=== PATIENT | female | born 1930 | race Caucasian/White ===

== ENCOUNTER 2018-06-29 08:48 | Inpatient (IN) | payer OTHER ==
[~2018-06-29] VITALS: Ht 162.6 cm; Wt 59.4 kg
[2018-06-29 08:48] VITALS: BP_SYST 110
[2018-06-29] MEDS ORDERED: ONDANSETRON HCL 4 MG/2 ML VIAL IVP ONE (09:15)
[2018-06-29] MEDS ORDERED: fentaNYL CITRATE/PF 100 MCG/2 ML AMP IVP ONE ×2 (09:15→10:30)
[2018-06-29] MEDS ORDERED: NACL 0.9% 1,000 ML IV ONE (09:15)
[2018-06-29 09:21] LABS: BASOPHILS % (AUTO) 0.5 % (0.0-2.0); EOSINOPHILS # (AUTO) 0.1 K/uL (0.0-0.4); EOSINOPHILS % (AUTO) 1.1 % (0.0-4.0); HEMATOCRIT 37.9 % (36-48); HEMOGLOBIN 11.9 g/dL (12.0-16.0); LYMPHOCYTES # (AUTO) 1.9 K/uL (1.0-5.5); LYMPHOCYTES % (AUTO) 36.3 % (20.5-51.5); MEAN CORPUSCULAR HEMOGLOBIN 28 pg (27-31); MEAN CORPUSCULAR HGB CONC 31 % (32-36); MEAN CORPUSCULAR VOLUME 88 fL (79.0-98.0); MONOCYTES # (AUTO) 0.3 K/uL (0.0-1.0); NEUTROPHILS % (AUTO) 56.1 % (40.0-70.0); PLATELET COUNT (AUTO) 311 K/uL (130-430); RED BLOOD CELL COUNT(AUTO) 4.32 MIL/uL (4.2-6.2); RED CELL DISTRIBUTION WIDTH 16.3 % (9.0-15.0); WHITE BLOOD COUNT (AUTO) 5.3 K/uL (4.8-10.8)
[2018-06-29 09:26] LABS: ANION GAP 10 (5-15); CALCIUM 9.6 mg/dL (8.4-11.0); CHLORIDE 104 mmol/L (98-107); GLUCOSE 194 mg/dL (70-99); SODIUM SERUM 139 mmol/L (136-145); UREA NITROGEN, BLOOD 10 mg/dL (8-21)
[2018-06-29 09:32] LABS: ALANINE AMINOTRANSFERASE 16 U/L (12-78); ALBUMIN 2.9 g/dL (3.4-4.8); ASPARTATE AMINOTRANSFERASE 16 U/L (10-37); TOTAL BILIRUBIN 0.4 mg/dL (0.0-1.0)
[2018-06-29 09:34] LABS: PROTHROMBIN TIME 10.5 SECS (9.5-12.5)
[2018-06-29] MEDS ORDERED: LORazepam 2 MG/ML VIAL (FOR ER USE) IVP ONE (11:45)
[2018-06-29 11:59] VITALS: BP_SYST 197
[2018-06-29 12:00] VITALS: BP_SYST 197
[2018-06-29] MEDS ORDERED: ONDANSETRON HCL 4 MG/2 ML VIAL IVP PRN (12:00)
[2018-06-29] MEDS ORDERED: ACETAMINOPHEN 325 MG TABLET PO PRN (12:00)
[2018-06-29] MEDS: HYDROmorphone 1 MG INJ. 1 MG/ML AMPUL IVP PRN ×2 (12:11→15:31)
[2018-06-29 14:52] LABS: BILIRUBIN,URINE NEGATIVE (NEGATIVE); BLOOD, URINE NEGATIVE (NEGATIVE); CLARITY/URINE CLEAR (CLEAR); COLOR,URINE YELLOW (YELLOW); GLUCOSE,URINE NEGATIVE (NEGATIVE); KETONES,URINE NEGATIVE (NEGATIVE); LEUKOCYTE ESTERASE ,URINE NEGATIVE (NEGATIVE); NITRITE, URINE NEGATIVE (NEGATIVE); PROTEIN URINE NEGATIVE (NEGATIVE); UROBILINOGEN,URINE 0.2 (0.2-1.0)
[2018-06-29] MEDS ORDERED: DEXTROSE 50% JECT 50 ML DISP.SYRIN IVP PRN ×2 (15:15)
[2018-06-29] MEDS ORDERED: INSULIN REGULAR, HUMAN 100 UNITS/ML, 10 ML VIAL (novoLIN R) SUBCUT PRN ×2 (15:15)
[2018-06-29 16:00] VITALS: BP_SYST 157
[2018-06-29 17:38] VITALS: BP_SYST 144
[2018-06-29] MEDS ORDERED: HYDROmorphone 2 MG/ML VIAL ONE (17:43)
[2018-06-29 17:45] VITALS: BP_SYST 144
[2018-06-29] MEDS ORDERED: HYDROmorphone 2 MG/ML VIAL IVP PRN (17:45)
== END 2018-06-29 19:25 | disposition short-term general hospital (02) | DRG 534 ==
LOC: SED 08:48 → SMU 11:07
PROVIDERS: ADMIT Internal Medicine Hospice and Palliative Medicine; ATTEND Internal Medicine Hospice and Palliative Medicine
DX: S72.402A Unspecified fracture of lower end of left femur, initial encounter for closed fracture (principal); J98.11 Atelectasis; I25.10 Atherosclerotic heart disease of native coronary artery without angina pectoris; E11.9 Type 2 diabetes mellitus without complications; I10 Essential (primary) hypertension; M81.0 Age-related osteoporosis without current pathological fracture; W18.39XA Other fall on same level, initial encounter; Y93.89 Activity, other specified; Z88.0 Allergy status to penicillin; I25.2 Old myocardial infarction; Z90.49 Acquired absence of other specified parts of digestive tract; Z88.1 Allergy status to other antibiotic agents; Z88.2 Allergy status to sulfonamides; Y92.89 Other specified places as the place of occurrence of the external cause; Y99.8 Other external cause status; S72.302A Unspecified fracture of shaft of left femur, initial encounter for closed fracture
CPT/HCPCS: 36415; 71045; 72192-TC; 73700-TC; 80053; 81003; 82962; 85025; 85610-TC; 85730-TC; 87081; 93005; 96374; 96375; 96376; 99285; J1170; J2060; J2405; J3010; J7030

== ENCOUNTER 2020-05-17 07:29 | Emergency (ER) | payer OTHER ==
[~2020-05-17] VITALS: Ht 167.6 cm; Wt 68.0 kg
[2020-05-17 07:35] VITALS: BP_SYST 143
--- NOTE | 2020-05-17 07:35 | NUR ---
Patient to ER bed 6 to gown for evaluation. Side rails up. Report given to Morris GOODWIN.
--- NOTE | 2020-05-17 07:40 | NUR ---
Pt came to ER for R head skin tear after mechanical fall this morning when turning tv on. Pt denies pain, AO4, resting in gurney, follows commands, VSS, no distress.
--- NOTE | 2020-05-17 07:43 | NUR ---
ER at bedside examining patient.
--- NOTE | 2020-05-17 07:44 | NUR ---
Current accu check 271.
[2020-05-17 09:03] VITALS: BP_SYST 143
--- NOTE | 2020-05-17 09:06 | NUR ---
Patient given written and verbal discharge instructions and verbalizes understanding. ER MD discussed with patient the results and treatment provided. Patient in stable condition. ID arm band removed. Rx of Motrin given. Patient educated on pain management and to follow up with PMD. Pain Scale 0/10. Opportunity for questions provided and answered. Medication side effect fact sheet provided.
== END 2020-05-17 09:06 | disposition home or self-care (01) ==
LOC: SED 07:29
DX: S00.81XA Abrasion of other part of head, initial encounter (principal); I10 Essential (primary) hypertension; E11.9 Type 2 diabetes mellitus without complications; Z90.49 Acquired absence of other specified parts of digestive tract; Z88.0 Allergy status to penicillin; Z88.6 Allergy status to analgesic agent; W18.39XA Other fall on same level, initial encounter; Y93.89 Activity, other specified; Y92.89 Other specified places as the place of occurrence of the external cause; Y99.8 Other external cause status
CPT/HCPCS: 70450-TC; 82962; 99284

== ENCOUNTER 2020-12-09 10:52 | Emergency (ER) | payer OTHER ==
[~2020-12-09] VITALS: Ht 162.6 cm; Wt 64.4 kg
[2020-12-09 11:01] VITALS: BP_SYST 180
--- NOTE | 2020-12-09 11:04 | NUR ---
Patient to ER bed 08 to gown for evaluation. Side rails up.
--- NOTE | 2020-12-09 11:10 | NUR ---
ER DR. CARDONA AT THE BEDSIDE EXAMINING PT
--- NOTE | 2020-12-09 11:12 | NUR ---
PT BIBA FROM HOME AFTER REPORTING THAT HER "LEGS GAVE OUT" AND SHE FELL ON LEFT KNEE AND THEN BACK OF HEAD. PT HAS HEMATOMA TO BACK OF HEAD, NO ACTIVE BLEEDING. PT IS AAOX3, V/S STABLE
[2020-12-09] MEDS ORDERED: ACETAMINOPHEN 500 MG TABLET PO ONE (11:30)
--- NOTE | 2020-12-09 11:38 | NUR ---
Patient transported to radiology via GURNEY, accompanied by STAFF.
--- NOTE | 2020-12-09 12:13 | NUR ---
PT REQUESTING BED HYATT, ABLE TO VOID, SPECIMEN COLLECTED AND SENT TO LAB
--- NOTE | 2020-12-09 13:30 | NUR ---
Patient given written and verbal discharge instructions and verbalizes understanding. ER MD discussed with patient the results and treatment provided. Patient in stable condition. ID arm band removed. Patient educated on pain management and to follow up with PMD. Pain Scale 0/10. Opportunity for questions provided and answered. Medication side effect fact sheet provided.
[2020-12-09 13:32] VITALS: BP_SYST 180
== END 2020-12-09 13:30 ==
LOC: SED 10:52
DX: S00.03XA Contusion of scalp, initial encounter (principal); M25.562 Pain in left knee; I10 Essential (primary) hypertension; E11.9 Type 2 diabetes mellitus without complications; Z88.0 Allergy status to penicillin; Z88.5 Allergy status to narcotic agent; W18.39XA Other fall on same level, initial encounter; Y93.89 Activity, other specified; Y92.89 Other specified places as the place of occurrence of the external cause; Y99.8 Other external cause status
CPT/HCPCS: 70450-TC; 72125-TC; 73560-TC; 76376; 93005; 99285

== ENCOUNTER 2021-10-05 05:15 | Inpatient (IN) | payer OTHER, SELFPAY ==
[~2021-10-05] VITALS: Ht 157.5 cm; Wt 57.6 kg
[2021-10-05 05:20] VITALS: BP_SYST 111
[2021-10-05 06:18] LABS: BASOPHILS % (AUTO) 0.4 % (0.0-2.0); HEMATOCRIT 46.6 % (36-48); HEMOGLOBIN 15.5 g/dL (12.0-16.0); LYMPHOCYTES # (AUTO) 0.3 K/uL (1.0-5.5); MEAN CORPUSCULAR HEMOGLOBIN 31 pg (27-31); MEAN CORPUSCULAR HGB CONC 33 % (32-36); MEAN CORPUSCULAR VOLUME 95 fL (79.0-98.0); MONOCYTES # (AUTO) 0.5 K/uL (0.0-1.0); MONOCYTES % (AUTO) 4.9 % (1.7-9.3); NEUTROPHILS # (AUTO) 9.4 K/uL (1.8-7.7); NEUTROPHILS % (AUTO) 91.7 % (40.0-70.0); PLATELET COUNT (AUTO) 179 K/uL (130-430); RED BLOOD CELL COUNT(AUTO) 4.93 MIL/uL (4.2-6.2); RED CELL DISTRIBUTION WIDTH 14.2 % (9.0-15.0); WHITE BLOOD COUNT (AUTO) 10.3 K/uL (4.8-10.8)
[2021-10-05 06:26] LABS: ANION GAP 17 (5-15); CHLORIDE 103 mmol/L (98-107); CREATININE 0.85 mg/dL (0.55-1.30); GLUCOSE 325 mg/dL (70-99); POTASSIUM 3.3 mmol/L (3.5-5.1); SODIUM SERUM 139 mmol/L (136-145); UREA NITROGEN, BLOOD 16 mg/dL (8-21)
[2021-10-05 06:34] LABS: ALANINE AMINOTRANSFERASE 23 U/L (12-78); ALBUMIN 3.6 g/dL (3.4-4.8); ASPARTATE AMINOTRANSFERASE 27 U/L (10-37); TOTAL BILIRUBIN 0.6 mg/dL (0.0-1.0)
[2021-10-05] MEDS ORDERED: NACL 0.9% 1,000 ML IV ONE (07:00)
[2021-10-05] MEDS ORDERED: LISI10TA PO (07:58)
[2021-10-05] MEDS ORDERED: SITA1TAB6 PO (07:58)
[2021-10-05 08:59] LABS: BILIRUBIN,URINE NEGATIVE (NEGATIVE); BLOOD, URINE 3+ (NEGATIVE); CLARITY/URINE HAZY (CLEAR); COLOR,URINE YELLOW (YELLOW); GLUCOSE,URINE 3+ (NEGATIVE); KETONES,URINE 1+ (NEGATIVE); LEUKOCYTE ESTERASE ,URINE NEGATIVE (NEGATIVE); NITRITE, URINE POSITIVE (NEGATIVE); PH,URINE 5.5 (5.0-8.0); PROTEIN URINE 2+ (NEGATIVE); UROBILINOGEN,URINE 0.2 (0.2-1.0)
[2021-10-05 09:06] LABS: BACTERIA,URINE MODERATE /HPF (None Seen); MUCUS,URINE 1+ /LPF (None Seen); RBC,URINE 20-50 /HPF (0-3)
[2021-10-05] MEDS ORDERED: LEVOFLOXACIN IN DEXTROSE 5 % 100 ML IV ONE ×2 (09:45→18:00)
[2021-10-05] MEDS: D5NS 1,000 ML IV SCH ×2 (11:00→13:24)
[2021-10-05 11:22] VITALS: BP_SYST 167
[2021-10-05 11:25] VITALS: BP_SYST 167
[2021-10-05] MEDS ORDERED: DEXTROSE 50% JECT 50 ML DISP.SYRIN IVP PRN (12:15)
[2021-10-05] MEDS: INSULIN REGULAR, HUMAN 100 UNITS/ML, 10 ML VIAL (humuLIN R) SUBCUT PRN ×2 (13:21→17:54)
[2021-10-05 16:00] VITALS: BP_SYST 155
[2021-10-05 23:16] VITALS: BP_SYST 125
[2021-10-06 02:48] VITALS: BP_SYST 128
[2021-10-06 04:55] VITALS: BP_SYST 140
[2021-10-06] MEDS: INSULIN REGULAR, HUMAN 100 UNITS/ML, 10 ML VIAL (humuLIN R) SUBCUT PRN ×3 (05:34→22:47)
[2021-10-06 06:18] LABS: BASOPHILS % (AUTO) 0.1 % (0.0-2.0); EOSINOPHILS # (AUTO) 0.1 K/uL (0.0-0.4); EOSINOPHILS % (AUTO) 1.3 % (0.0-4.0); HEMATOCRIT 45.3 % (36-48); HEMOGLOBIN 15.1 g/dL (12.0-16.0); LYMPHOCYTES # (AUTO) 0.6 K/uL (1.0-5.5); LYMPHOCYTES % (AUTO) 7.5 % (20.5-51.5); MEAN CORPUSCULAR HEMOGLOBIN 31 pg (27-31); MEAN CORPUSCULAR HGB CONC 33 % (32-36); MEAN CORPUSCULAR VOLUME 94 fL (79.0-98.0); MONOCYTES # (AUTO) 0.5 K/uL (0.0-1.0); MONOCYTES % (AUTO) 6.6 % (1.7-9.3); NEUTROPHILS % (AUTO) 84.5 % (40.0-70.0); PLATELET COUNT (AUTO) 168 K/uL (130-430); RED BLOOD CELL COUNT(AUTO) 4.83 MIL/uL (4.2-6.2); RED CELL DISTRIBUTION WIDTH 14.6 % (9.0-15.0); WHITE BLOOD COUNT (AUTO) 8.3 K/uL (4.8-10.8)
[2021-10-06 06:41] LABS: ANION GAP 11 (5-15); CHLORIDE 106 mmol/L (98-107); CREATININE 0.63 mg/dL (0.55-1.30); GLUCOSE 187 mg/dL (70-99); SODIUM SERUM 142 mmol/L (136-145); UREA NITROGEN, BLOOD 15 mg/dL (8-21)
[2021-10-06 06:57] LABS: ALANINE AMINOTRANSFERASE 24 U/L (12-78); ALBUMIN 2.9 g/dL (3.4-4.8); ASPARTATE AMINOTRANSFERASE 37 U/L (10-37); THYROID STIMULATING HORMONE 1.01 uIu/mL (0.36-3.74); TOTAL BILIRUBIN 0.7 mg/dL (0.0-1.0)
[2021-10-06 07:14] LABS: POTASSIUM 2.9 mmol/L (3.5-5.1)
[2021-10-06] MEDS: LEVOFLOXACIN 250 MG/D5W 50 ML IV SCH (08:54)
[2021-10-06 09:08] LABS: CHOLESTEROL 126 mg/dL (<200); HDL CHOLESTEROL 91 mg/dL (>55); LDL CHOLESTEROL 20 mg/dL (<100); TRIGLYCERIDES 89 mg/dL (30-150)
[2021-10-06 11:27] VITALS: BP_SYST 156
[2021-10-06] MEDS: D5NS 1,000 ML IV SCH ×3 (14:21→22:00)
[2021-10-06] MEDS ORDERED: POTASSIUM CHLORIDE 20 MEQ TAB.PRT.SR PO ONE (16:30)
[2021-10-06 16:48] VITALS: BP_SYST 149
[2021-10-06 20:00] VITALS: BP_SYST 146
[2021-10-07] VITALS: BP_SYST 159
[2021-10-07] MEDS: INSULIN REGULAR, HUMAN 100 UNITS/ML, 10 ML VIAL (humuLIN R) SUBCUT PRN ×2 (06:14→12:30)
[2021-10-07 08:00] VITALS: BP_SYST 155
[2021-10-07] MEDS: LEVOFLOXACIN 250 MG/D5W 50 ML IV SCH (11:18)
[2021-10-07] MEDS ORDERED: ACETAMINOPHEN 325 MG TABLET PO PRN (12:00)
[2021-10-07 12:50] VITALS: BP_SYST 146
[2021-10-07 16:23] VITALS: BP_SYST 140
[2021-10-07] MEDS: D5NS 1,000 ML IV SCH ×2 (18:57→20:09)
[2021-10-07 20:27] VITALS: BP_SYST 114
[2021-10-07] MEDS: NACL 0.9% 1,000 ML IV SCH (20:36)
[2021-10-08] VITALS (7 sets, daily range): BP systolic 114–160
[2021-10-08] MEDS: INSULIN REGULAR, HUMAN 100 UNITS/ML, 10 ML VIAL (humuLIN R) SUBCUT PRN ×3 (01:06→23:11)
[2021-10-08] MEDS: LEVOFLOXACIN 250 MG/D5W 50 ML IV SCH (09:11)
[2021-10-08] MEDS: ERTAPENEM SODIUM 1 GM in NS 50 ML IV SCH (12:21)
[2021-10-08] MEDS: NACL 0.9% 1,000 ML IV SCH ×2 (12:22→23:12)
[2021-10-08] MEDS ORDERED: DIPHENHYDRAMINE INJ 50 MG/ML VIAL IVP ONE (20:30)
[2021-10-09 00:16] VITALS: BP_SYST 142
[2021-10-09] MEDS: INSULIN REGULAR, HUMAN 100 UNITS/ML, 10 ML VIAL (humuLIN R) SUBCUT PRN ×3 (05:45→17:54)
[2021-10-09 07:40] LABS: ALANINE AMINOTRANSFERASE 20 U/L (12-78); ALBUMIN 2.3 g/dL (3.4-4.8); ANION GAP 8 (5-15); ASPARTATE AMINOTRANSFERASE 20 U/L (10-37); CALCIUM 8.5 mg/dL (8.4-11.0); CHLORIDE 105 mmol/L (98-107); CREATININE 0.48 mg/dL (0.55-1.30); GLUCOSE 178 mg/dL (70-99); POTASSIUM 3.2 mmol/L (3.5-5.1); SODIUM SERUM 141 mmol/L (136-145); TOTAL BILIRUBIN 0.6 mg/dL (0.0-1.0); UREA NITROGEN, BLOOD 12 mg/dL (8-21)
[2021-10-09 08:00] VITALS: BP_SYST 155
[2021-10-09 08:16] LABS: BASOPHILS % (AUTO) 0.5 % (0.0-2.0); EOSINOPHILS # (AUTO) 0.1 K/uL (0.0-0.4); EOSINOPHILS % (AUTO) 2.8 % (0.0-4.0); HEMATOCRIT 40.6 % (36-48); HEMOGLOBIN 13.6 g/dL (12.0-16.0); LYMPHOCYTES # (AUTO) 0.8 K/uL (1.0-5.5); LYMPHOCYTES % (AUTO) 15.7 % (20.5-51.5); MEAN CORPUSCULAR HEMOGLOBIN 31 pg (27-31); MEAN CORPUSCULAR HGB CONC 34 % (32-36); MEAN CORPUSCULAR VOLUME 93 fL (79.0-98.0); MONOCYTES # (AUTO) 0.4 K/uL (0.0-1.0); MONOCYTES % (AUTO) 8.2 % (1.7-9.3); NEUTROPHILS # (AUTO) 3.6 K/uL (1.8-7.7); NEUTROPHILS % (AUTO) 72.8 % (40.0-70.0); PLATELET COUNT (AUTO) 169 K/uL (130-430); RED BLOOD CELL COUNT(AUTO) 4.36 MIL/uL (4.2-6.2); RED CELL DISTRIBUTION WIDTH 14.3 % (9.0-15.0); WHITE BLOOD COUNT (AUTO) 4.9 K/uL (4.8-10.8)
[2021-10-09] MEDS: LEVOFLOXACIN 250 MG/D5W 50 ML IV SCH (10:26)
[2021-10-09 13:14] VITALS: BP_SYST 147
[2021-10-09] MEDS: ERTAPENEM SODIUM 1 GM in NS 50 ML IV SCH (13:19)
[2021-10-09] MEDS: NACL 0.9% 1,000 ML IV SCH (16:48)
[2021-10-09] MEDS ORDERED: LISINOPRIL 10 MG TABLET (PRINIVIL) PO ONE (17:00)
[2021-10-09 18:11] VITALS: BP_SYST 171
[2021-10-09 21:25] VITALS: BP_SYST 148
[2021-10-10 00:13] VITALS: BP_SYST 147
[2021-10-10] MEDS: INSULIN REGULAR, HUMAN 100 UNITS/ML, 10 ML VIAL (humuLIN R) SUBCUT PRN ×5 (00:53→21:48)
[2021-10-10] MEDS: NACL 0.9% 1,000 ML IV SCH ×2 (05:50→21:38)
[2021-10-10 08:00] VITALS: BP_SYST 152
[2021-10-10] MEDS ORDERED: LISINOPRIL 10 MG TABLET (PRINIVIL) PO SCH (09:00)
[2021-10-10] MEDS: LEVOFLOXACIN 250 MG/D5W 50 ML IV SCH (09:55)
[2021-10-10] MEDS: ERTAPENEM SODIUM 1 GM in NS 50 ML IV SCH (11:22)
[2021-10-10 12:00] VITALS: BP_SYST 187
[2021-10-10 12:32] VITALS: BP_SYST 179
[2021-10-10] MEDS ORDERED: LISINOPRIL 10 MG TABLET (PRINIVIL) PO ONE (13:15)
[2021-10-10 16:00] VITALS: BP_SYST 146
[2021-10-10 20:00] VITALS: BP_SYST 180
[2021-10-10] MEDS: LISINOPRIL 10 MG TABLET (PRINIVIL) PO SCH (21:37)
[2021-10-10] MEDS ORDERED: DIPHENHYDRAMINE INJ 50 MG/ML VIAL IVP ONE (23:15)
[2021-10-10] MEDS ORDERED: hydrALAZINE HCL 25 MG TABLET PO ONE (23:15)
[2021-10-11 01:43] VITALS: BP_SYST 155
[2021-10-11] MEDS ORDERED: hydrALAZINE HCL 20 MG/ML VIAL IVP ONE (01:45)
[2021-10-11] MEDS ORDERED: KETOROLAC TROMETHAMINE 30 MG VIAL IVP ONE (01:45)
[2021-10-11] MEDS ORDERED: hydrALAZINE HCL 20 MG/ML VIAL ONE (02:03)
[2021-10-11] MEDS: INSULIN REGULAR, HUMAN 100 UNITS/ML, 10 ML VIAL (humuLIN R) SUBCUT PRN ×2 (06:29→11:56)
[2021-10-11 08:20] VITALS: BP_SYST 136
[2021-10-11] MEDS: LEVOFLOXACIN 250 MG/D5W 50 ML IV SCH (09:46)
[2021-10-11] MEDS: NACL 0.9% 1,000 ML IV SCH ×2 (10:03→21:44)
[2021-10-11] MEDS: LISINOPRIL 10 MG TABLET (PRINIVIL) PO SCH ×2 (10:26→21:43)
[2021-10-11] MEDS: ERTAPENEM SODIUM 1 GM in NS 50 ML IV SCH (10:32)
[2021-10-11 12:53] VITALS: BP_SYST 143
[2021-10-11 17:34] VITALS: BP_SYST 152
[2021-10-11 20:00] VITALS: BP_SYST 168
[2021-10-12 00:58] VITALS: BP_SYST 179
[2021-10-12] MEDS: INSULIN REGULAR, HUMAN 100 UNITS/ML, 10 ML VIAL (humuLIN R) SUBCUT PRN ×3 (01:36→17:08)
[2021-10-12 07:50] VITALS: BP_SYST 154
[2021-10-12 07:58] LABS: ANION GAP 7 (5-15); CALCIUM 8.5 mg/dL (8.4-11.0); CHLORIDE 105 mmol/L (98-107); CREATININE 0.57 mg/dL (0.55-1.30); GLUCOSE 188 mg/dL (70-99); POTASSIUM 4.3 mmol/L (3.5-5.1); SODIUM SERUM 142 mmol/L (136-145); UREA NITROGEN, BLOOD 17 mg/dL (8-21)
[2021-10-12 08:00] VITALS: BP_SYST 154
[2021-10-12 09:00] LABS: BASOPHILS % (AUTO) 0.3 % (0.0-2.0); EOSINOPHILS # (AUTO) 0.1 K/uL (0.0-0.4); EOSINOPHILS % (AUTO) 1.7 % (0.0-4.0); HEMATOCRIT 41.8 % (36-48); HEMOGLOBIN 13.9 g/dL (12.0-16.0); LYMPHOCYTES # (AUTO) 0.7 K/uL (1.0-5.5); LYMPHOCYTES % (AUTO) 12.7 % (20.5-51.5); MEAN CORPUSCULAR HEMOGLOBIN 31 pg (27-31); MEAN CORPUSCULAR HGB CONC 33 % (32-36); MEAN CORPUSCULAR VOLUME 94 fL (79.0-98.0); MONOCYTES # (AUTO) 0.4 K/uL (0.0-1.0); MONOCYTES % (AUTO) 7.7 % (1.7-9.3); NEUTROPHILS # (AUTO) 4.2 K/uL (1.8-7.7); NEUTROPHILS % (AUTO) 77.6 % (40.0-70.0); PLATELET COUNT (AUTO) 200 K/uL (130-430); RED BLOOD CELL COUNT(AUTO) 4.46 MIL/uL (4.2-6.2); WHITE BLOOD COUNT (AUTO) 5.5 K/uL (4.8-10.8)
[2021-10-12 09:21] LABS: C-REACTIVE PROTEIN QUANT 6.6 mg/dL (0-0.5)
[2021-10-12] MEDS: ERTAPENEM SODIUM 1 GM in NS 50 ML IV SCH (09:35)
[2021-10-12] MEDS: LEVOFLOXACIN 250 MG/D5W 50 ML IV SCH (09:35)
[2021-10-12] MEDS: LISINOPRIL 10 MG TABLET (PRINIVIL) PO SCH ×2 (09:37→22:19)
[2021-10-12 09:40] LABS: ERYTHROCYTE SEDIMENTATION RATE 28 MM/HR (0-20)
[2021-10-12 12:00] VITALS: BP_SYST 142
[2021-10-12] MEDS ORDERED: LISI10TA29 PO (12:40)
[2021-10-12] MEDS ORDERED: LEVO250T43 PO (12:40)
[2021-10-12] MEDS: NACL 0.9% 1,000 ML IV SCH (14:39)
[2021-10-12 16:00] VITALS: BP_SYST 150
[2021-10-13 00:02] VITALS: BP_SYST 154
[2021-10-13] MEDS: INSULIN REGULAR, HUMAN 100 UNITS/ML, 10 ML VIAL (humuLIN R) SUBCUT PRN ×2 (00:16→12:52)
[2021-10-13 09:20] LABS: BASOPHILS % (AUTO) 0.4 % (0.0-2.0); EOSINOPHILS # (AUTO) 0.1 K/uL (0.0-0.4); EOSINOPHILS % (AUTO) 1.7 % (0.0-4.0); HEMATOCRIT 41.7 % (36-48); LYMPHOCYTES # (AUTO) 0.7 K/uL (1.0-5.5); LYMPHOCYTES % (AUTO) 15.6 % (20.5-51.5); MEAN CORPUSCULAR HEMOGLOBIN 32 pg (27-31); MEAN CORPUSCULAR HGB CONC 34 % (32-36); MEAN CORPUSCULAR VOLUME 94 fL (79.0-98.0); MONOCYTES # (AUTO) 0.4 K/uL (0.0-1.0); NEUTROPHILS # (AUTO) 3.3 K/uL (1.8-7.7); NEUTROPHILS % (AUTO) 73.3 % (40.0-70.0); PLATELET COUNT (AUTO) 212 K/uL (130-430); RED BLOOD CELL COUNT(AUTO) 4.44 MIL/uL (4.2-6.2); RED CELL DISTRIBUTION WIDTH 13.9 % (9.0-15.0); WHITE BLOOD COUNT (AUTO) 4.5 K/uL (4.8-10.8)
[2021-10-13 09:44] LABS: ALANINE AMINOTRANSFERASE 19 U/L (12-78); ALBUMIN 2.3 g/dL (3.4-4.8); ANION GAP 8 (5-15); ASPARTATE AMINOTRANSFERASE 13 U/L (10-37); C-REACTIVE PROTEIN QUANT 6.8 mg/dL (0-0.5); CALCIUM 8.9 mg/dL (8.4-11.0); CHLORIDE 101 mmol/L (98-107); CREATININE 0.62 mg/dL (0.55-1.30); GLUCOSE 230 mg/dL (70-99); POTASSIUM 4.6 mmol/L (3.5-5.1); SODIUM SERUM 138 mmol/L (136-145); TOTAL BILIRUBIN 0.7 mg/dL (0.0-1.0); UREA NITROGEN, BLOOD 18 mg/dL (8-21)
[2021-10-13] MEDS: LISINOPRIL 10 MG TABLET (PRINIVIL) PO SCH (09:44)
[2021-10-13] MEDS: ERTAPENEM SODIUM 1 GM in NS 50 ML IV SCH (10:30)
[2021-10-13 11:07] VITALS: BP_SYST 147
[2021-10-13 11:37] LABS: ERYTHROCYTE SEDIMENTATION RATE 33 MM/HR (0-20)
[2021-10-13 15:58] VITALS: BP_SYST 137
== END 2021-10-13 17:20 | disposition hospice, home (50) | DRG 64 ==
LOC: SED 05:15 → OBSVTOIN 09:43 → STU 09:43 → INTOOBSV 09:43 → STU 10:17 → SMU 10-10 10:04
PROVIDERS: ADMIT Internal Medicine Hospice and Palliative Medicine; ATTEND Internal Medicine Hospice and Palliative Medicine
DX: I63.9 Cerebral infarction, unspecified (principal); E11.10 Type 2 diabetes mellitus with ketoacidosis without coma; I21.A1 Myocardial infarction type 2; J96.00 Acute respiratory failure, unspecified whether with hypoxia or hypercapnia; N39.0 Urinary tract infection, site not specified; Z16.12 Extended spectrum beta lactamase (ESBL) resistance; Z66 Do not resuscitate; B96.20 Unspecified Escherichia coli [E. coli] as the cause of diseases classified elsewhere; F03.90 Unspecified dementia, unspecified severity, without behavioral disturbance, psychotic disturbance, mood disturbance, and anxiety; I10 Essential (primary) hypertension; I25.10 Atherosclerotic heart disease of native coronary artery without angina pectoris; E86.0 Dehydration; M19.90 Unspecified osteoarthritis, unspecified site; Z20.822 Contact with and (suspected) exposure to COVID-19; R53.81 Other malaise; R29.6 Repeated falls; S00.83XA Contusion of other part of head, initial encounter; W18.39XA Other fall on same level, initial encounter; Y93.89 Activity, other specified; Y92.098 Other place in other non-institutional residence as the place of occurrence of the external cause; Y99.8 Other external cause status; Z88.0 Allergy status to penicillin; Z88.2 Allergy status to sulfonamides; Z88.7 Allergy status to serum and vaccine; Z88.8 Allergy status to other drugs, medicaments and biological substances; Z79.899 Other long term (current) drug therapy; Z85.828 Personal history of other malignant neoplasm of skin
CPT/HCPCS: 36415; 70450-TC; 70486-TC; 70551; 71045; 72125-TC; 72170-TC; 73030; 76376; 80048; 80053; 80061; 81000; 82962; 83880; 84443; 84484; 85025; 85651-TC; 86140; 87086; 87230-TC; 92610-GN; 93005; 93306; 97110-GP; 97112-GP; 97163-GP; 97530-GP; G0378; J0360; J1200; J1335; J1815; J1885; J1956